=== PATIENT | female | born 1945 | race Caucasian/White ===

== ENCOUNTER 2016-10-28 06:03 | Day surgery (SDC) | payer MEDICARE ==
[2016-10-25 12:40] LABS: HEMOGLOBIN 9.4 g/dL (12.0-16.0)
[2016-10-25 12:41] LABS: HEMATOCRIT 30.6 % (36.0-48.0)
[2016-10-25 12:53] LABS: BUN (BLOOD UREA NITROGEN) 10 MG/DL (6-23); CHLORIDE, SERUM 99 MMOL/L (96-112); CO2 (CARBON DIOXIDE) 29 MMOL/L (24-34); CREATININE 0.57 MG/DL (0.55-1.02); GFR AFRICAN AMERICAN 107 ML/MIN (>=60); GFR NON AFRICAN AMERICAN 92 ML/MIN (>=60); POTASSIUM, SERUM 4.6 MMOL/L (3.5-5.3); SODIUM, SERUM 136 MMOL/L (135-148)
[2016-10-25 12:54] LABS: CALCIUM, SERUM 8.3 MG/DL (8.5-10.4); GLUCOSE, SERUM 72 MG/DL (60-99)
--- NOTE | ~2016-10-28 | OP ---
Record Of Operation [facility] [address] [place]. [address] NAME: SHANNAN JACKSON : [birth year] [place] [facility] [facility] [place] [id number] AGE: 71 ADM/REG DATE : 10/28/16 MR#: [id number] REPORT SERV DATE: 10/28/16 DICTATED BY: VIVIAN MULLER DATE: 10/28/16 REPORT STATUS : Draft TRANSCRIBED BY: MODL DATE: 10/28/16 DATE OF PROCEDURE: 10/28/2016 PREOPERATIVE DIAGNOSES: 1. Left chronic maxillary sinusitis. 2. Left chronic ethmoid sinusitis. POSTOPERATIVE DIAGNOSES: 1. Left chronic maxillary sinusitis. 2. Left chronic ethmoid sinusitis. PROCEDURE: 1. Left endoscopic total ethmoidectomy. 2. Left endoscopic maxillary sinus antrostomy with culture. SURGEON: Vivian Muller M.D. ANESTHESIA: General. COMPLICATIONS: None. COUNTS: All counts correct following the procedure. ESTIMATED BLOOD LOSS: 5 mL PREOPERATIVE INFORMED CONSENT: We discussed the risks and benefits of surgery including, but not limited to bleeding, infection, possible CSF leak, possible ocular injury including blindness, and consent is on the chart. PROCEDURE IN DETAIL: The patient was brought to the operating suite and placed on the operating table in the supine position. General endotracheal anesthesia was initiated without incident. The patient's head and neck was cleaned, prepped, and draped in the usual sterile fashion. Following this, a left nasal cavity, the inferior and middle turbinate, and uncinate processes were injected 1% lidocaine and 1:100,000 epinephrine for hemostasis. Approximately, 7 mL was used. Following this, using a pediatric backbiting forceps, the lower portion of the uncinate process was taken down these with Xomed sinus shaver and pediatric backbiting forceps and the ethmoid bulla was opened widely using the Xomed sinus shaver and the basal lamella of the middle turbinate was penetrated using the Xomed sinus shaver and worked from a posteroanterior fascia along the lamina papyracea. The posterior and anterior ethmoid air cells were marsupialized. Purulent drainage from the maxillary sinus was suctioned into a Lukens trap and sent for Gram stain, [employer] and then the maxillary sinus was copiously irrigated with sterile saline until clear. The patient was then awakened anesthesia and taken to recovery room in stable condition. Record Of Operation [facility] [address] [place]. [address] NAME: SHANNAN JACKSON : [birth year] [place] [facility] [place] [id number] AGE: 71 ADM/REG DATE : 10/28/16 MR#: [id number] REPORT SERV DATE: 10/28/16 DICTATED BY: VIVIAN MULLER DATE: 10/28/16 REPORT STATUS : Draft TRANSCRIBED BY: REJI DATE: 10/28/16 ESTHER/REJI Vivian Muller M.D. / [id number] CC: Ti Rosales M.D.
[~2016-10-28 06:03] MED LIST: AMB10 PO; AMB5 PO; AMIT10 PO; AMIT50 PO; ATEN25 PO; ATEN50 PO; BOSWELIA; BROMELAIN500 MG PO; CALTRA600D PO; CALTRAT600 PO; CO Q; COQ10100 MG OR; EFFEXOR XR150 MG PO; EFFEXOR100 MG PO; ENDOCET1 TA1 PO; EXCEDRIN EXTRA1 EACH PO; EXCEDRINTB PO; FISH-EPA1000 MG PO; FOLIC ACID PO; FOLIC ACID800 MCG; FOLIC ACID800 MCG PO; FOLIC PO; HEMOCYTE324 MG PO; HUMIRA; HUMIRA PEN SC; IRON 65 MG; IRON PO; MELA3 PO; MELATONIN5 M1 PO; MIRALAX POWDER1 PKT PO; MIRALAXPKT PO; MTX2.5 PO; MUCINEX PO; MUCINEX600 MG PO; MULTIPLE VIT PO; MULTIVITAMI1 PO; NASONEX NAS; NEUR100 PO; NOR10 PO; P5 PO; PEP20 PO; PRILO PO; PROLIA60 MG/1 ML SC; PROTONIX PO; RANITIDINE300 MG PO; RECLAST IV; RELPAX40 MG PO; SINGULAIR1 PO; TOPAMAX25 PO; TOPAMAX50 MG PO; VIT E; VITAMIN D1000 UNI1 PO; VITD PO; VITE PO; VYTORIN 10/20 T1 TAB PO; ZINC GLUCON50 MG PO; ZINC GLUCONATE PO; ZYRTEC ALLGY10 MG PO; [UNRECOGNIZED DRUG - OTHER] PO
== END 2016-10-28 23:59 | disposition home or self-care (01) ==
LOC: MSC 06:03
PROVIDERS: Otolaryngology
PROC: 09BV4ZZ Excision of Left Ethmoid Sinus, Percutaneous Endoscopic Approach (ICD-10-PCS; principal; 2016-10-28 07:15)
PROC: 099R4ZZ Drainage of Left Maxillary Sinus, Percutaneous Endoscopic Approach (ICD-10-PCS; 2016-10-28 07:15)
DX: J32.2 Chronic ethmoidal sinusitis (principal); J32.0 Chronic maxillary sinusitis; I10 Essential (primary) hypertension; K21.9 Gastro-esophageal reflux disease without esophagitis; K58.9 Irritable bowel syndrome, unspecified; M06.9 Rheumatoid arthritis, unspecified; M81.0 Age-related osteoporosis without current pathological fracture; D64.9 Anemia, unspecified; F32.9 Major depressive disorder, single episode, unspecified; G89.29 Other chronic pain; G43.909 Migraine, unspecified, not intractable, without status migrainosus; H91.93 Unspecified hearing loss, bilateral; Z98.1 Arthrodesis status; Z90.89 Acquired absence of other organs; Z90.49 Acquired absence of other specified parts of digestive tract; Z98.51 Tubal ligation status; Z98.890 Other specified postprocedural states; Z79.899 Other long term (current) drug therapy
CPT/HCPCS: 80048; 85014; 85018; 87070; 87077; 87186; 88305; A9270-GY; J0690; J2405; J3010

== ENCOUNTER 2016-11-17 13:31 | Day surgery (SDC) | payer MEDICARE ==
--- NOTE | ~2016-11-17 | EGD ---
EGD REPORT [facility] [address] [place] [place] [address] NAME: SHANNAN CEBALLOS : [birth year] STATUS : REG [facility]#: [id number] AGE: 71 ADM/REG DATE : 11/17/16 MR#: [id number] REPORT SERV DATE: 11/17/16 DICTATED BY: CORI CARLISLE DATE: 11/17/16 REPORT STATUS : Draft TRANSCRIBED BY: [facility] DATE: 11/17/16 Endoscopy Center Patient Name: Shannan Ceballos Date of : 1945 Attending MD: YOLI CARLISLE MD Procedure Date No Time: 11/17/2016 Procedure: Upper GI endoscopy Indications: Iron deficiency anemia, Heme positive stool Referring MD: TAMANNA CHESTER Medicines: See the Anesthesia note for documentation of the administered medications Complications: No immediate complications. Estimated blood loss: Minimal. Procedure: Pre-Anesthesia Assessment: - ASA Grade Assessment: III - A patient with severe systemic disease. - Prior to the procedure, a History and Physical was performed, and patient medications and allergies were reviewed. The patient's tolerance of previous anesthesia was also reviewed. The risks and benefits of the procedure and the sedation options and risks were discussed with the patient. All questions were answered, and informed consent was obtained. Prior Anticoagulants: The patient has taken no previous anticoagulant or antiplatelet agents. After reviewing the risks and benefits, the patient was deemed in satisfactory condition to undergo the procedure. After obtaining informed consent, the endoscope was passed under direct vision. Throughout the procedure, the patient's blood pressure, pulse, and oxygen saturations were monitored continuously. The GIF H190 [id number] was introduced through the mouth, and advanced to the second part of duodenum. The upper GI endoscopy was accomplished without difficulty. The patient tolerated the procedure well. Findings: The examined duodenum was normal. Pyloric scarring.with mild luminal narrowing, scope goes through. Biopsy with a cold forceps was performed for histology. No other significant abnormalities were identified in a careful examination of the stomach. The cardia and gastric fundus were normal on retroflexion. The examined esophagus was normal. EGD REPORT [address] [address] NAME: SHANNAN CEBALLOS : [birth year] STATUS : REG [facility]#: [id number] AGE: 71 ADM/REG DATE : 11/17/16 MR#: [id number] REPORT SERV DATE: 11/17/16 DICTATED BY: CORI CARLISLE DATE: 11/17/16 REPORT STATUS : Draft TRANSCRIBED BY: [facility] DATE: 11/17/16 Impression: - Normal examined duodenum. - Pyloric scarring.with mild luminal narrowing, scope goes through. - Normal esophagus. Recommendation: - Patient has a contact number available for emergencies. The signs and symptoms of potential delayed complications were discussed with the patient. Return to normal activities tomorrow. Written discharge instructions were provided to the patient. - Regular diet. - Discharge patient to home. - Continue present medications. - Await pathology results. Procedure Code(s): --- Professional --- 53763, Esophagogastroduodenoscopy, flexible, transoral; with biopsy, single or multiple Diagnosis Code(s): --- Professional --- D50.9, Iron deficiency anemia, unspecified R19.5, Other fecal abnormalities CPT copyright 2013 [employer]. All rights reserved. The codes documented in this report are preliminary and upon certified medical coder review may be revised to meet current compliance requirements. YOLI CARLISLE MD 11/17/2016 3:46 PM This report has been signed electronically. Number of Addenda: 0 Note Initiated On: 11/17/2016 3:31 PM Scope Withdrawal Time 0 hours 0 minutes 0 seconds [address] [id number]
--- NOTE | ~2016-11-17 | EGD ---
EGD REPORT [facility] [address] [place] [place] [address] NAME: SHANNAN CEBALLOS : 41 STATUS : REG [facility]#: [id number] AGE: 71 ADM/REG DATE : 11/17/16 MR#: [id number] REPORT SERV DATE: 11/17/16 DICTATED BY: CORI CARLISLE DATE: 11/17/16 REPORT STATUS : Draft TRANSCRIBED BY: [facility] DATE: 11/17/16 Endoscopy Center Patient Name: Shannan Ceballos Date of : 1945 Attending MD: YOLI CARLISLE MD Procedure Date No Time: 11/17/2016 Procedure: Colonoscopy Indications: Heme positive stool, Iron deficiency anemia Referring MD: TAMANNA CHESTER Medicines: See the Anesthesia note for documentation of the administered medications Complications: No immediate complications. Estimated blood loss: None. Procedure: Pre-Anesthesia Assessment: - ASA Grade Assessment: III - A patient with severe systemic disease. - Prior to the procedure, a History and Physical was performed, and patient medications and allergies were reviewed. The patient's tolerance of previous anesthesia was also reviewed. The risks and benefits of the procedure and the sedation options and risks were discussed with the patient. All questions were answered, and informed consent was obtained. Prior Anticoagulants: The patient has taken no previous anticoagulant or antiplatelet agents. After reviewing the risks and benefits, the patient was deemed in satisfactory condition to undergo the procedure. After I obtained informed consent, the scope was passed under direct vision. Throughout the procedure, the patient's blood pressure, pulse, and oxygen saturations were monitored continuously. The PCF [id number] was introduced through the anus and advanced to the cecum, identified by appendiceal orifice and ileocecal valve. The ileocecal valve, appendiceal orifice and rectum were photographed. The entire colon was examined. The colonoscopy was performed without difficulty. The patient tolerated the procedure well. The quality of the bowel preparation was inadequate. Findings: The perianal and digital rectal examinations were normal. Non-bleeding internal hemorrhoids were found during retroflexion and were Grade I (internal hemorrhoids that do not prolapse). No other significant abnormalities were identified in a careful examination of the remainder of the colon. EGD REPORT [facility] [place] [id number] [place]. [address] NAME: SHANNAN CEBALLOS : [birth year] STATUS : REG [facility]#: [id number] AGE: 71 ADM/REG DATE : 11/17/16 MR#: [id number] REPORT SERV DATE: 11/17/16 DICTATED BY: CORI CARLISLE DATE: 11/17/16 REPORT STATUS : Draft TRANSCRIBED BY: [facility] DATE: 11/17/16 Impression: - Preparation of the colon was inadequate. - Non-bleeding internal hemorrhoids. Recommendation: - Patient has a contact number available for emergencies. The signs and symptoms of potential delayed complications were discussed with the patient. Return to normal activities tomorrow. Written discharge instructions were provided to the patient. - Regular diet. - Continue present medications. - Repeat colonoscopy is not recommended for surveillance. Procedure Code(s): --- Professional --- 36091, Colonoscopy, flexible, proximal to splenic flexure; diagnostic, with or without collection of specimen(s) by brushing or washing, with or without colon decompression (separate procedure) Diagnosis Code(s): --- Professional --- K64.0, First degree hemorrhoids R19.5, Other fecal abnormalities D50.9, Iron deficiency anemia, unspecified CPT copyright 2013 [employer]. All rights reserved. The codes documented in this report are preliminary and upon wraparound facilitator review may be revised to meet current compliance requirements. YOLI CARLISLE MD 11/17/2016 4:04 PM This report has been signed electronically. Number of Addenda: 0 Note Initiated On: 11/17/2016 3:26 PM Scope Withdrawal Time 0 hours 7 minutes 21 seconds
== END 2016-11-17 23:59 | disposition home or self-care (01) ==
LOC: DMU 13:31
PROVIDERS: Internal Medicine Gastroenterology
PROC: 0DJ08ZZ Inspection of Upper Intestinal Tract, Via Natural or Artificial Opening Endoscopic (ICD-10-PCS; principal; 2016-11-17 15:00)
PROC: 0DJD8ZZ Inspection of Lower Intestinal Tract, Via Natural or Artificial Opening Endoscopic (ICD-10-PCS; 2016-11-17 15:00)
DX: D50.9 Iron deficiency anemia, unspecified (principal); R19.5 Other fecal abnormalities; K64.0 First degree hemorrhoids; I10 Essential (primary) hypertension; K58.9 Irritable bowel syndrome, unspecified; K21.9 Gastro-esophageal reflux disease without esophagitis; M06.9 Rheumatoid arthritis, unspecified; M81.0 Age-related osteoporosis without current pathological fracture; G43.909 Migraine, unspecified, not intractable, without status migrainosus; H91.90 Unspecified hearing loss, unspecified ear; J32.8 Other chronic sinusitis; Z98.51 Tubal ligation status; Z90.89 Acquired absence of other organs; Z79.899 Other long term (current) drug therapy; Z98.890 Other specified postprocedural states; Z79.891 Long term (current) use of opiate analgesic
CPT/HCPCS: 88305